=== PATIENT | female | born 1985 | race Caucasian/White ===

== ENCOUNTER 2023-06-20 06:35 | Outpatient (OUT) | payer OTHER, SELFPAY ==
[2023-06-20 09:12] LABS: Alanine Aminotransferase 19 U/L (14-59); Albumin Globulin Ratio 1.2; Albumin Level 3.9 g/dL (3.4-5.0); Alkaline Phosphatase 72 U/L (46-116); Aspartate Amino Transferase 14 U/L (15-37); BUN Creatinine Ratio 21.9; Bilirubin Total 0.2 mg/dL (0.2-1.0); Calcium 8.1 mg/dL (8.5-10.1); Carbon Dioxide 27.7 mmol/L (21.0-32.0); Chloride 107 mmol/L (98-107); Chol HDL Ratio 2.5; Cholesterol 145 mg/dL (<=200); Estimated GFR (African America >60 (>=60); Estimated GFR (Non-African Ame >60 (>=60); Globulin 3.3 g/dL; Glucose 91 mg/dL (74-106); HDL Cholesterol 57 mg/dL (40-60); LDL Cholesterol Calculated 80.2 mg/dL; Potassium 3.7 mmol/L (3.5-5.1); Sodium 143 mmol/L (136-145); Thyroid Stimulating Hormone 3.198 uIU/mL (0.358-3.740); Total Protein 7.2 g/dL (6.4-8.2); Triglycerides 39 mg/dL (<=150); VLDL CHOLESTEROL 7.8 mg/dL
[2023-06-20 10:24] LABS: Bilirubin Urine NEGATIVE (NEGATIVE); Blood Urine MODERATE (NEGATIVE); Clarity Urine CLEAR (CLEAR); Color Urine LT. YELLOW (YELLOW); Glucose Urine UA NEGATIVE (NEGATIVE); Ketones Urine NEGATIVE (NEGATIVE); Leukocyte Esterase Urine NEGATIVE (NEGATIVE); Nitrite Urine NEGATIVE (NEGATIVE); Protein Urine NEGATIVE (NEG/TRACE); Urobilinogen Urine 0.2 EU/dL (0.2-1.0)
[2023-06-20 10:58] LABS: Bacteria Urine TRACE #/HPF (NONE SEEN); Cast Seen? NONE SEEN #/LPF (NONE SEEN); Crystals Seen? None Seen #/HPF (None Seen); Mucus Urine NONE SEEN (NONE SEEN); Squamous Epithelial Cell Urine RARE #/LPF (NONE/RARE); WBC Urine NONE SEEN #/HPF (NONE SEEN)
[2023-06-20 11:43] LABS: Basophils Percent Auto 0.7 % (0.2-2.0); Eosinophils Absolute Auto 0.1 10^3/uL (0.0-0.7); Eosinophils Percent Auto 2.2 % (0.9-7.0); Hematocrit 40.6 % (36.0-48.0); Hemoglobin 12.9 g/dL (12.0-16.0); Immature Granulocytes Abs Auto 0.01 10^3/uL (0.00-0.03); Immature Granulocytes Pct Auto 0.2 % (0.0-0.5); Lymphocytes Absolute Auto 1.7 10^3/uL (1.2-3.8); Lymphocytes Percent Auto 31.4 % (20.5-60.0); Mean Corpuscular HGB Conc 31.8 g/dL (29.9-35.2); Mean Corpuscular Hemoglobin 27.7 pg (26.7-34.0); Mean Corpuscular Volume 87.3 fL (81.0-99.0); Mean Platelet Volume 9.9 fL (9.5-13.5); Monocytes Absolute Auto 0.4 10^3/uL (0.3-0.8); Monocytes Percent Auto 6.6 % (1.7-12.0); Neutrophils Absolute Auto 3.2 10^3/uL (1.4-6.5); Neutrophils Percent Auto 58.9 % (43.0-75.0); Platelet Count 289 10^3/uL (150-450); Red Blood Count 4.65 10^6/uL (4.20-5.40); Red Cell Distribution Width 13.3 % (11.0-15.0); White Blood Count 5.4 10^3/uL (4.0-11.0)
== END 2023-06-20 06:36 | disposition home or self-care (01) ==
PROVIDERS: PCP Nurse Practitioner; Visit Provider Nurse Practitioner
DX: Z00.00 Encounter for general adult medical examination without abnormal findings (principal)
CPT/HCPCS: 36415; 80053; 80061; 81001; 84439; 84443; 85025

== ENCOUNTER 2023-11-27 20:01 | Outpatient (REF) | payer OTHER, SELFPAY ==
[2023-12-03 19:09] LABS: Age Gdln ACOG Testing Note (.); HPV Aptima Negative (Negative); IGP, Aptima HPV, rfx 16/18,45 Note (.)
== END 2023-11-27 20:02 | disposition home or self-care (01) ==
LOC: LAB 20:01
PROVIDERS: PCP Nurse Practitioner; Visit Provider Physician Assistant
DX: Z01.419 Encounter for gynecological examination (general) (routine) without abnormal findings (principal)
CPT/HCPCS: 87624; G0145

== ENCOUNTER 2025-08-12 07:01 | Outpatient (OUT) | payer BC, SELFPAY ==
--- OUTSIDE RECORDS SUMMARY | 2025-08-12 07:08 | XMS_ITS | Clinical Summary ---
Author Organization [facility] Address [address] [place] [address] Care Team Providers Care Spout Tender Name Role Phone Ninfa Araiza NP Unavailable [phone] Nehemiah Loo MD Primary Care Provider [phone] Ninfa Araiza SUSTAINABILITY PROJECT MANAGER Unavailable [phone] Allergies No known active allergies Medications MedicationSigDispense QuantityRefillsLast FilledStart DateEnd DateStatus escitalopram (Lexapro) 20 MG tablet Indications:Anxiety and depressionTake 1 tablet (20 mg) by mouth Daily 90 tablet 4Active Active Problems ProblemNoted DateDiagnosed DateClass 1 obesity due to excess calories without serious comorbidity in adult08/04/2024 Assessment & Plan (08/04/2024 11:31 AM EST): Discussed with patient their BMI (actual, verses recommended). We have also discussed lifestyle modifications: attempts to perform physical activity as chronic conditions allow, also to monitor dietary intake: increasing protein/fruits/veggies and lowering carb intake (unless contraindicated). Limit sodas, juices, and sugary drinks. Acute non-recurrent maxillary vmwupirpw63/11/2024 Assessment & Plan (08/04/2024 11:40 AM EST): Atb May cont with OTC decongestant to help with cough or sinus pressure Gave NeoMed saline irrigation bottle as well Fluids, rest, work note Fu if not better Anxiety and ekraokongk16/08/2024 Assessment & Plan (08/04/2024 11:30 AM EST): Has been taking escitalopram daily for a few years Helps with anxiety and depression as well No dose changes, will refill medication at this time Assessment & Plan (01/15/2024 6:15 PM EDT): Stable, no worsening in symtpms Assessment & Plan (12/18/2023 6:35 PM EDT): May continue current med at current dose as well Assessment & Plan (09/01/2023 6:03 PM EST): Doing well on current dose of meds Fu in 3 months no changes at this time Resolved Problems ProblemNoted DateDiagnosed DateResolved DateOverweight (BMI 25.0-29.9)03/01/2024 08/04/2024MI 31.0-31.9,adult Assessment & Plan (12/18/2023 6:35 PM EDT): Pt meets qualifications of OAC 4731-06-28 for weight loss. BMI>30 or >27 with comorbid conditions. Notify office with any symptoms of chest pain, dyspnea, heart palpitations, or any anxiety symptoms. F/U in 4 weeks to document weight loss. Increase physical activity as tolerated, and lower caloric intake to 1600 calories daily if no contraindications OARRS reviewed Script #1 Anxiety, ywqfcszdjrp93Nasal sinjzizatwjv33 Immunizations ImmunizationAdministration DatesNext PvnUVC36 Family History Medical HistoryRelationNameCommentsHypertensionBrotherAlcohol abuseFatherCancer FatherlungNo Known ProblemsMaternal GrandfatherDiabetesMaternal Grandmother HypertensionMaternal GrandmotherCancerMotherDiabetesMotherHepatitisMother HypertensionMotherLeukemiaPaternal GrandfatherAsthmaPaternal GrandmotherBlood clotsPaternal GrandmotherDiabetesPaternal GrandmotherHeart diseasePaternal GrandmotherHyperlipidemiaPaternal GrandmotherHypertensionPaternal Grandmother RelationNameStatusCommentsBrotherFatherMaternal GrandfatherMaternal Grandmother MotherPaternal GrandfatherPaternal Grandmother Social History Tobacco UseTypesPacks/DayYears UsedDateSmoking Tobacco: NeverSmokeless Tobacco: Never Tobacco Cessation:Counseling Given: Not Answered Alcohol UseStandard Drinks/WeekCommentsNever0 (1 standard drink = 0.6 oz pure alcohol)Social Connection and Isolation PanelAnswerDate RecordedIn a typical week, how many times do you talk on the phone with family, friends, or neighbors?Once a week12/11/2023How often do you get together with friends or relatives?Once a week12/11/2023How often do you attend hindu or adventist services?Never12/11/2023o you belong to any clubs or organizations such as hindu groups, unions, fraternal or athletic groups, or school groups?No 12/11/2023How often do you attend meetings of the clubs or organizations you belong to?Never12/11/2023re you , , , , never , or living with a partner?Never gcemzxz5512/11/2023UDIT-CAnswerDate RecordedQ1: How often do you have a drink containing alcohol?2-4 times a month 12/11/2023Q2: How many drinks containing alcohol do you have on a typical day when you are drinking?3 or Q3: How often do you have six or more drinks on one occasion?Less than cnlsnyk0012/11/2023Overall Financial Resource Strain (CARDIA)AnswerDate RecordedHow hard is it for you to pay for the very basics like food, housing, medical care, and heating?Patient blsadgxk92/18/2024 PHQ-2AnswerDate RecordedPatient Health Questionnaire-2 [id number] city [facility] [place] [facility] - Occupational Stress QuestionnaireAnswerDate RecordedDo you feel stress - tense, restless, nervous, or anxious, or unable to sleep at night because yourmind is troubled all the time - these days?Only a xynkit6412/11/2023Exercise Vital SignAnswerDate RecordedOn average, how many days per week do you engage in moderate to strenuous exercise (like a brisk walk)?5 days12/11/2023On average, how many minutes do you engage in exercise at this level?20 min12/11/2023Hunger Vital SignAnswerDate RecordedWithin the past 12 months, you worried that your food would run out before you got the money to buy more.Patient orxmbjsj30/18/2024Within the past 12 months, the food you bought just didn't last and you didn't have money to get more.Patient declined 12/11/2023RAPARE - TransportationAnswerDate RecordedIn the past 12 months, has lack of transportation kept you from medical appointments or from getting medications?Patient advjrjzy03/18/2024In the past 12 months, has lack of transportation kept you from meetings, work, or from getting things needed for daily living?Patient /18/2024Housing Stability Vital SignAnswerDate RecordedIn the last 12 months, was there a time when you were not able to pay the mortgage or rent on time?Patient daehmwrc52/18/2024Number of Places Lived in the Last YearNot on file12/11/2023In the last 12 months, was there a time when you did not have a steady place to sleep or slept in [facility] (including now)? Patient zjctiqcq46/18/2024CommentsNoSex and Gender InformationValueDate RecordedSex Assigned at BirthNot on fileLegal HerKjsbcp56/15/2023 11:47 PM EDT Gender IdentityNot on fileSexual OrientationNot on file Last Filed Vital Signs Vital SignReadingTime TakenCommentsBlood Gxpuleii361/7808/04/2024 11:21 AM EST Dzgef759108/04/2024 11:21 AM ZAJKfbdleispsq73.6 ??C (99.6 ??F)08/04/2024 11:21 AM ESTRespiratory Treq617808/04/2024 11:21 AM ESTOxygen Gaazeiliog94%08/04/2024 11:21 AM ESTInhaled Oxygen Concentration--Ecnjow88 kg (152 lb 3.2 oz)08/04/2024 11:21 AM YLPHfnzka544.3 cm (4' 10 )08/04/2024 11:21 AM ESTBody Mass Index31.81 08/04/2024 11:21 AM EST Plan of Treatment Not on file Insurance Care Teams Team MemberRelationshipSpecialtyStart DateEnd Date Nehemiah Loo MD PCP - GeneralFamily Medicine11/12/23 Ninfa Araiza NP Referring PhysicianNurse Practitioner03/17/23 Ninfa Araiza NP Nurse PractitionerFamily Medicine11/12/23
[2025-08-12 07:38] LABS: Hematocrit 39.8 % (36.0-48.0); Hemoglobin 13.7 g/dL (12.0-16.0); Immature Granulocytes Abs Auto 0.01 10^3/uL (0.00-0.03); Immature Granulocytes Pct Auto 0.2 % (0.0-0.5); Lymphocytes Absolute Auto 1.3 10^3/uL (1.2-3.8); Mean Corpuscular HGB Conc 34.4 g/dL (29.9-35.2); Mean Corpuscular Hemoglobin 29.5 pg (26.7-34.0); Mean Corpuscular Volume 85.6 fL (81.0-99.0); Platelet Count 272 10^3/uL (150-450); Red Blood Count 4.65 10^6/uL (4.20-5.40); White Blood Count 4.4 10^3/uL (4.0-11.0)
[2025-08-12 08:15] LABS: Alanine Aminotransferase 16 U/L (14-59); Albumin Globulin Ratio 1.4; Albumin Level 4.1 g/dL (3.4-5.0); Alkaline Phosphatase 58 U/L (46-116); Anion Gap 12.1; Aspartate Amino Transferase 13 U/L (15-37); Blood Urea Nitrogen 11.0 mg/dL (7.0-18.0); Calcium 8.9 mg/dL (8.5-10.1); Carbon Dioxide 26.9 mmol/L (21.0-32.0); Chloride 109 mmol/L (98-107); Cholesterol 136 mg/dL (<=200); Estimated GFR (African America >60 (>=60 mL/min/1.73m^2); Estimated GFR (Non-African Ame >60 (>=60 mL/min/1.73m^2); Globulin 3.0 g/dL; Glucose 92 mg/dL (74-106); HDL Cholesterol 54 mg/dL (40-60); Potassium 4.0 mmol/L (3.5-5.1); Sodium 144 mmol/L (136-145); TSH W/ REFLEX FT4 2.459 uIU/mL (0.358-3.740); Total Protein 7.1 g/dL (6.4-8.2); Triglycerides 27 mg/dL (<=150); VLDL CHOLESTEROL 5.4 mg/dL
[2025-08-13 06:08] LABS: Sex Horm Binding Glob, Serum 101.0 nmol/L (24.6-122.0)
== END 2025-08-12 07:02 | disposition home or self-care (01) ==
PROVIDERS: PCP Nurse Practitioner Adult Health; Visit Provider Nurse Practitioner Adult Health
DX: F33.2 Major depressive disorder, recurrent severe without psychotic features (principal); Z13.220 Encounter for screening for lipoid disorders; N95.1 Menopausal and female climacteric states; Z86.32 Personal history of gestational diabetes
CPT/HCPCS: 36415; 80053; 80061; 83036; 84144; 84270; 84443; 85025